=== PATIENT | female | born 2000 | race Caucasian/White ===

== ENCOUNTER 2021-03-07 14:41 | Emergency (ER) | payer OTHER ==
[2021-03-07] MEDS ORDERED: SODIUM CHLORIDE 0.9% 1,000 ML IV STA (15:36)
[2021-03-07] MEDS ORDERED: MECLIZINE 12.5 MG TAB PO STA (15:36)
[2021-03-07 16:23] LABS: Basophils % (A) 0 %; Eosinophils # (A) 0.2 k/uL (0-0.7); Eosinophils % (A) 3 %; HCT 41.8 % (34.0-46.0); Lymphocytes % (A) 27 %; MCH 33.2 pg (25.0-35.0); MCHC 33.5 g/dL (31.0-37.0); MCV 99.3 fL (80.0-100.0); Mean Platelet Volume 8.1; Monocytes # (A) 0.4 k/uL (0-1.0); Monocytes % (A) 6 %; Neutrophils # (A) 4.7 k/uL (1.3-7.7); Neutrophils % (A) 63 %; Platelet Count 260 k/uL (150-450); RBC 4.21 m/uL (3.80-5.40); RDW 12.2 % (11.5-15.5); WBC 7.4 k/uL (3.8-10.6)
[2021-03-07 16:32] LABS: Potassium 3.7 mmol/L (3.5-5.1)
[2021-03-07 16:33] LABS: African American GFR (CKD) >90 (>60 ml/min/1.73 sqM); Anion Gap 6 mmol/L; Blood Urea Nitrogen 11 mg/dL (7-17); Calcium 9.1 mg/dL (8.4-10.2); Carbon Dioxide 24 mmol/L (22-30); Chloride 108 mmol/L (98-107); Glucose 88 mg/dL (74-99); Non-African American GFR(CKD) >90 (>60 ml/min/1.73 sqM); Sodium 138 mmol/L (137-145)
[2021-03-07 16:43] LABS: Appearance,Urine Cloudy (Clear); Bacteria,Urine Rare /hpf; Bilirubin,Urine Negative (Negative); Blood,Urine Negative (Negative); Color,Urine Yellow; Glucose,Urine (UA) Negative (Negative); Ketones,Urine Negative (Negative); Leukocyte Esterase,Urine Large (Negative); Mucus,Urine Many /hpf; Nitrite,Urine Negative (Negative); Protein,Urine Trace (Negative); RBC,Urine 10 /hpf (0-5); Specific Gravity,Urine 1.028 (1.001-1.035); Squamous Epithelial Cell,Urine 5 /hpf (0-4); WBC,Urine 16 /hpf (0-5)
[2021-03-07 16:57] VITALS: PULSE 82; RESP 16
[2021-03-07 18:05] LABS: HCG,Qualitative Serum Not Detected
--- NOTE | 2021-03-07 18:23 | ED ---
General Adult HPI - General Chief complaint: Dizziness Stated complaint: Dizziness Time Seen by Provider: 03/07/21 15:06 Source: family, RN notes reviewed, old records reviewed Mode of arrival: ambulatory Limitations: no limitations - History of Present Illness Initial comments: Patient is a 20-year-old female with no significant past medical history [facility] complaining of lightheadedness feeling. She states that she felt a room spinning sensation once in the last few days. However she states she has been feeling increasingly intermittent lightheadedness over the last few days. She denies any association with sitting or standing. She states it does occur while she is at work where she stands for long period time. She s tates she feels dehydrated. She denies any abdominal pain, nausea, vomiting. Denies any chest pain, shortness of breath. Denies any fevers, chills, cough. States she is not . His no urinary complaints. Denies any vaginal discharge or bleeding. She otherwise has no acute complaints at this time. Patient presents over concern for her lightheadedness sensation. She denies any cardiac history. Denies any history of blood clots herself or family members. Has no syncopal episodes. She endorses occasional marijuana use and occasional alcohol use but denies drug use otherwise. - Related Data Previous Rx's Medication Instructions Recorded Meclizine [Antivert] 25 mg PO BID #6 tab 03/07/21 Allergies Allergy/AdvReac Type Severity Reaction Status Date / Time No Known Allergies Allergy Verified 03/07/21 16:32 Review of Systems ROS Statement: Those systems with pertinent positive or pertinent negative responses have been documented in the HPI. Review of Systems: CONST: Denies fever EYES: Denies blurry vision ENT: Denies nasal congestion C/V: Denies Chest pain RESP: Denies shortness of breath GI: Denies abdominal pain : Denies dysuria SKIN: Denies rash. MSK: Denies joint pain. NEURO: Endorses lightheadedness ROS Other: All systems not noted in ROS Statement are negative. Past Medical History Past Medical History: No Reported History History of Any Multi-Drug Resistant Organisms: None Reported Past Surgical History: No Surgical Hx Reported Smoking Status: Current some day smoker Past Alcohol Use History: Occasional Past Drug Use History: Marijuana General Exam - General Exam Comments Initial Comments: General: Appears in no acute distress. HEAD: Normal with no signs of head trauma. EYES: PERRLA, EOMI, conjunctiva normal, no discharge. Pupils are 3 mm and equally reactive. ENT: Hearing grossly intact, normal oropharynx. RESPIRATORY: Clear breath sounds bilaterally. No wheezes, rales, or rhonchi. C/V: Regular rate and rhythm. S1 and S2 auscultated, no edema, peripheral pulses 2+ and intact throughout ABD: Abd is soft, nontender, nondistended EXT: Normal range of motion, no obvious deformity SKIN: No rashes or lesions observed on exposed skin. NEURO: Alert and oriented x 4. Cranial nerves II-XII intact. No focal sensory or strength deficits. Cerebellar function is intact as evident by normal finger nose testing, absence of dysdiadochokinesia, as well as normal [id number] testing. Patient is able to ambulate without difficulty. Romberg testing is negative for acute abnormality. Limitations: no limitations Course Vital Signs 03/07/21 03/07/21 03/07/21 14:53 14:58 15:58 Temperature 98.2 F Pulse Rate 89 73 82 Respiratory 18 18 16 Rate Blood Pressure 104/71 107/66 108/71 O2 Sat by Pulse 98 100 99 Oximetry 03/07/21 18:46 Temperature 97.7 F Pulse Rate 82 Respiratory 16 Rate Blood Pressure 103/70 O2 Sat by Pulse 99 Oximetry Medical Decision Making - Medical Decision Making Based on the patient's presentation and physical exam, she is experiencing unexplained lightheadedness. Would like to obtain a screening EKG as well as basic laboratory studies as well as a urinalysis. She'll be given a 1 L fluid bolus as well as meclizine, she did have 1 episode of vertiginous type dizziness earlier. She was in agreement this plan. She'll be connected to continuous cardiac monitoring while she is here in the department. Patient's EKG shows no signs of acute ischemia. Patient's laboratory studies are relatively unremarkable. There are negative for acute . Patient's urinalysis is a contaminated catch and is unreliable. Patient has no urinary complaints at this time and therefore I do not believe that we require repeat urinalysis at this time, after discussing this with the patient. Her like to lites are within normal limits. Remainder of her labs are unremarkable. On reevaluation, patient is feeling improved. Neurological exam remains normal at this time. She has no deficits. She is able to ambulate without difficulty. I had and this has improved. I do believe it is safer to be discharged home and she was in agreement this plan. She did request a prescription for meclizine which I will provide to her. I will provide the patient with a prescription for meclizine. I instructed the patient to follow up with their PCP in the next 3 days. . I explained that the patient should return to the emergency department if they experience any worsening symptoms. Strict return precautions were discussed with the patient. The patient expressed understanding of these instructions. I answered all questions that the patient had. The patient was discharged home in good condition with their prescriptions and follow up information. - Lab Data Result diagrams: 03/07/21 15:59 03/07/21 15:59 Lab Results 03/07/21 03/07/21 03/07/21 Range/Units 15:59 15:59 15:59 WBC 7.4 (3.8-10.6) k/uL RBC 4.21 (3.80-5.40) m/uL Hgb 14.0 (11.4-16.0) gm/dL Hct 41.8 (34.0-46.0) % MCV 99.3 (80.0-100.0) fL MCH 33.2 (25.0-35.0) pg MCHC 33.5 (31.0-37.0) g/dL RDW 12.2 (11.5-15.5) % Plt Count 260 (150-450) k/uL MPV 8.1 Neutrophils % 63 % Lymphocytes % 27 % Monocytes % 6 % Eosinophils % 3 % Basophils % 0 % Neutrophils # 4.7 (1.3-7.7) k/uL Lymphocytes # 2.0 (1.0-4.8) k/uL Monocytes # 0.4 (0-1.0) k/uL Eosinophils # 0.2 (0-0.7) k/uL Basophils # 0.0 (0-0.2) k/uL Sodium 138 (137-145) mmol/L Potassium 3.7 (3.5-5.1) mmol/L Chloride 108 H (98-107) mmol/L Carbon Dioxide 24 (22-30) mmol/L Anion Gap 6 mmol/L BUN 11 (7-17) mg/dL Creatinine 0.66 (0.52-1.04) mg/dL Est GFR (CKD-EPI)AfAm >90 (>60 ml/min/1.73 sqM) Est GFR (CKD-EPI)NonAf >90 (>60 ml/min/1.73 sqM) Glucose 88 (74-99) mg/dL Calcium 9.1 (8.4-10.2) mg/dL Magnesium 2.0 (1.6-2.3) mg/dL HCG, Qual Not Detected Urine Color Yellow Urine Appearance Cloudy H (Clear) Urine pH 6.0 (5.0-8.0) Ur Specific [place] 1.028 (1.001-1.035) Urine Protein Trace H (Negative) Urine Glucose (UA) Negative (Negative) Urine Ketones Negative (Negative) Urine Blood Negative (Negative) Urine Nitrite Negative (Negative) Urine Bilirubin Negative (Negative) Urine Urobilinogen 2.0 (<2.0) mg/dL Ur Leukocyte Esterase Large H (Negative) Urine RBC 10 H (0-5) /hpf Urine WBC 16 H (0-5) /hpf Ur Squamous Epith Cells 5 H (0-4) /hpf Urine Bacteria Rare H (None) /hpf Urine Mucus Many H (None) /hpf - EKG Data -: EKG Interpreted by Me EKG Comments: 12-lead Electrocardiogram Interpretation Note EKG was reviewed and interpreted by myself. 12-lead ECG performed at 1547 is interpreted by me as revealing sinus bradycardia at a rate of 56 beats per minute. [place] is normal. [place] interval is 126 seconds, QRS duration is 84 ms, QTc is 418 ms.. There were no ST or T wave abnormalities to suggest myocardial ischemia or injury. R wave progression across the precordium was satisfactory. By my interpretation this EKG is non-diagnostic for acute ischemia. Disposition Clinical Impression: Dehydration, Lightheadedness Disposition: HOME SELF-CARE Condition: Good Instructions (If sedation given, give patient instructions): Dizziness (ED) Prescriptions: Meclizine [Antivert] 25 mg PO BID #6 tab Is patient prescribed a controlled substance at d/c from ED?: No Referrals: None,Stated [Primary Care Provider] - 1-2 days Rehan Goetz MD [STAFF PHYSICIAN] - 1-2 days
[2021-03-07 18:47] VITALS: BP 103/70; TEMP 97.7
== END 2021-03-07 18:46 | disposition home or self-care (01) ==
LOC: EC 14:41
DX: E86.0 Dehydration (principal); F17.200 Nicotine dependence, unspecified, uncomplicated; F12.90 Cannabis use, unspecified, uncomplicated
CPT/HCPCS: 36415; 80048; 81001; 83735; 84703; 85025; 87086; 93005; 96360; 99284